=== PATIENT | female | born 1965 | race Caucasian/White ===

== ENCOUNTER → 2021-04-10 | Outpatient (CLI) | payer MEDICARE, OTHER | LOC: EXRD 14:00 | DX: C50.412 Malignant neoplasm of upper-outer quadrant of left female breast (principal); C77.3 Secondary and unspecified malignant neoplasm of axilla and upper limb lymph nodes; R30.0 Dysuria; M85.852 Other specified disorders of bone density and structure, left thigh | CPT/HCPCS: 77080 ==